=== PATIENT | female | born 1955 | race Caucasian/White ===

== ENCOUNTER 2018-04-30 03:34 | Inpatient (IN) | payer SELFPAY ==
[2018-04-30] MEDS ORDERED: diphenhydrAMINE 50 MG/ML VIAL ONE (04:35)
[2018-04-30] MEDS ORDERED: Heparin 10,000 UNITS/1 ML VIAL ONE ×2 (04:56→06:23)
[2018-04-30] MEDS ORDERED: Fentanyl 100 MCG/2 ML VIAL ONE (05:07)
--- NOTE | 2018-04-30 05:57 | PRG ---
DATE OF SERVICE: 04/30/2018 Ms. Porter is a 63-year-old female who awoke with a dense left hemiparesis in the late evening. She presented to the ER where a noncontrast head CT was performed , which revealed no evidence for hemorrhage. Subsequent to that, she had a CT angiogram performed, which reveals branch occlusion of the right distal aspect of the M1 segment of the middle cerebral artery. She was outside the window for tPA. The paving and surfacing labourer was activated and the plan is to move forward with conventional angiography with potential for mechanical thrombectomy. Despite the patient's deficit, she is awake and interactive. She is able to follow commands. She is unable to lift her left leg or left arm to antigravity for more than a fraction of a second. I discussed risks, benefits, and alternatives of the procedure. Job ID: [id number] MTDD
[2018-04-30] MEDS ORDERED: Phenylephrine HCL 10 MG/ML VIAL ONE (06:35)
[2018-04-30] MEDS ORDERED: Labetalol HCl 100 MG/20 ML VIAL SLOW IVP PRN (06:45)
[2018-04-30] MEDS ORDERED: Communication Order-Pharmacy FS ONE (06:45)
--- NOTE | 2018-04-30 07:48 | CT ---
CT BRAIN PERFUSION WITH CONTRAST AND 3D REFORMATTED IMAGING: CLINICAL HISTORY: Left-sided weakness. FINDINGS: There is abnormal reduction of blood flow within the right MCA territory, predominantly the anterior division with correlative increased mean transit time. There is no significant reduction of blood vo lume. IMPRESSION: Sizable penumbra is demonstrated within the right middle cerebral artery territory, predominantly the anterior division. Telephone call of findings placed to Dr. Hoyt, 0525 hours, 04/30/2018. CODE CR POS: [facility]
[2018-04-30] MEDS: Ketorolac Tromethamine 30 MG/ML VIAL IVP PRN ×2 (08:58→16:12)
[2018-04-30] MEDS ORDERED: Non-Formulary Item 1 EACH (Escitalopram Oxalate [Lexapro] 5 MG) PO SCH (09:00)
--- NOTE | 2018-04-30 09:42 | CON ---
DATE OF CONSULTATION: 04/30/2018 CONSULTING PHYSICIAN: Dr. Hoyt. REASON FOR CONSULTATION: Critical Care Management post stroke. HISTORY OF PRESENT ILLNESS: The patient is a 63-year-old female, who presented to the emergency room after falling at home and demonstrating severe left-sided weakness. She was found to have a right MCA distribution stroke. She underwent emergency retrieval procedure by Dr. Hoyt and is now in the CCU. She is now on mechanical ventilation. She has an arterial line and blood pressure is being monitored closely. PAST MEDICAL HISTORY: 1. Hypothyroidism. 2. Hypertension. PAST SURGICAL HISTORY: 1. section. 2. Hysterectomy. 3. Right foot surgery. 4. Back surgery. SOCIAL HISTORY: She is a half pack per day smoker. Does not consume alcohol. Lives at home with family. 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 ALLERGIES: MULTIPLE INCLUDES CEPHALEXIN, CODEINE, MEPERIDINE, SULFA. MEDICATIONS: Prior to admission: 1. Lexapro 5 mg daily. 2. Inderal LA 80 mg once daily. 3. Levothyroxine 125 mcg daily. FAMILY MEDICAL HISTORY: Unremarkable for stroke. REVIEW OF SYSTEMS: Twelve-point review of system otherwise negative. PHYSICAL EXAMINATION: VITAL SIGNS: Pulse 61, blood pressure 135/55, O2 saturation 100%, respiratory rate 18. GENERAL: The patient is awake, able to follow commands on the right side. HEENT: Pupils reactive. Eyes are not deviated. Tongue midline. Oropharynx clear. NECK: No adenopathy or JVD. LUNGS: Clear to auscultation. CARDIAC: S1-S2 regular with audible murmur. ABDOMEN: Soft, nontender, nondistended. EXTREMITIES: No clubbing, cyanosis, or edema. NEUROLOGIC: She has dense left-sided hemiparesis. She has left-sided facial droop. Her motor function on the right is normal. LABORATORY DATA: 1. I do not see any labs that were drawn at our facility in [place]. Her white blood cell count 8.3, hematocrit 39.5, and platelet count 187. INR 0.8, PTT 24.3. Sodium 130, potassium 3.6, chloride 107, CO2 of 22, BUN 14, creatinine 0.7 glucose 105. TSH was 0.33. ASSESSMENT: 1. 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 2. Hypertension. 3. Hypothyroidism. PLAN: Her thyroid medication will be restarted. Her Lexapro will be restarted. I will hold off on Inderal at this time since she is on tight blood pressure control with nicardipine, if needed. The above encompassed 70 minutes time, of that greater than 50% was spent with the patient. Job ID: [id number] MTDD
[2018-04-30] MEDS: Sodium Chloride 0.9% 1,000 ML IV SCH (10:00)
--- NOTE | 2018-04-30 10:10 | CON ---
DATE OF CONSULTATION: 04/30/2018 IMPRESSION: 1. Probable right middle cerebral artery infarct, status post thrombectomy. 2. History of cardiac dysrhythmia. 3. Hypothyroidism. PLAN: 1. MRI of the brain. 2. Echocardiogram. 3. Start aspirin and a statin. HISTORY OF PRESENT ILLNESS: Ms. Porter is a 63-year-old white female, who was brought in with acute onset of dysarthria and left-sided weakness. Initial CT scan of the brain did not show any evidence of hemorrhage. She was taken to the greens laborer by Dr. Hoyt. She underwent thrombectomy. Reportedly, there was good latter-day of blood flow. She was transferred to the ICU. She has been in the sinus rhythm. She has not shown any sign of improvement. She had no history of TIA symptoms prior to this. PAST MEDICAL HISTORY: As listed above. ALLERGIES: IODINE. SOCIAL HISTORY: Unremarkable. FAMILY HISTORY: Noncontributory. REVIEW OF SYSTEMS: Ten-system review of systems is otherwise negative. PHYSICAL EXAMINATION: VITAL SIGNS: Pulse 65, respirations 13, and blood pressure 123/40. HEENT: Pupils are equal. Conjunctivae are clear. Oropharynx clear. NECK: No lymphadenopathy. EXTREMITIES: No cyanosis or edema. NEUROLOGIC: She is alert and cooperative. Her speech is moderately dysarthric. There is a left facial droop. There is a dense left hemiparesis. She also has dense sensory deficit on the left side. Plantar response is upgoing on the left, downgoing on the right. Gait is not testable. No abnormal movements were seen. LABORATORY DATA: Laboratory studies were reviewed and appear unremarkable. SUMMARY: Unfortunate woman, who suffered a fairly large infarct probably involving the entire MCA territory. Despite thrombectomy, I do not see any sign of improvement at this point. We will review her MRI of the brain and follow in her care. Job ID: [id number]
[2018-04-30] MEDS: Escitalopram Oxalate 10 mg Tablet PO SCH (10:30)
[2018-04-30] MEDS: Aspirin 325 mg Enteric Coated Tablet PO SCH (10:30)
[2018-04-30] MEDS: Levothyroxine Sodium 125 MCG TAB PO SCH (10:30)
[2018-04-30] MEDS: Famotidine/PF 20 mg/2ml Vial SLOW IVP SCH ×2 (10:31→21:52)
[2018-04-30] MEDS: Enoxaparin Sodium 30 MG/0.3 ML SYRINGE SC SCH (10:31)
[2018-04-30] MEDS ORDERED: Iopamidol 370 76% 100 ML VIAL ONE (11:25)
--- NOTE | 2018-04-30 12:02 | CON ---
DATE OF CONSULTATION: HISTORY OF PRESENT ILLNESS: The patient is able to speak this morning. She says she is doing okay. She does have some discomfort in her neck and upper back area, which is likely positional. Denies any other pain. Denies abdominal pain. Ms. Porter presented initially to the [facility] with a wake-up stroke. She had left hemiplegia. She was transported to [place], but given contrast allergy was premedicated and subsequently transferred to this facility. CT scan showed no bleed. CTA revealed evidence of a large vessel occlusion. Dr. Hoyt was notified, came in, performed manual extraction of the thrombus and subsequently, the patient has been admitted to the ICU. PAST MEDICAL HISTORY: Notable for hypothyroidism and apparently some history of blood pressure as well. PAST SURGICAL HISTORY: , ankle surgery, and back surgery. FAMILY HISTORY: Mother had a CVA. SOCIAL HISTORY: The patient is . She smokes half a pack a day. No alcohol. HOME MEDICATIONS: Include; 1. Propranolol 80 mg daily. 2. Escitalopram 5 mg daily. 3. Levothyroxine 125 mcg daily. ALLERGIES: KEFLEX, CODEINE, IODINE, MEPERIDINE/DEMEROL, AND SULFA. CURRENT MEDICATIONS: 1. Tylenol. 2. Aspirin. 3. Atorvastatin. 4. Enoxaparin. 5. Escitalopram. 6. Famotidine. 7. Ketorolac. 8. Labetalol. 9. Levothyroxine. 10. Cardene drip. PHYSICAL EXAMINATION: VITAL SIGNS: Afebrile, pulse 67, respirations 11, O2 saturation 98% on room air, and BP 124/52. GENERAL APPEARANCE: Age-appropriate female lying supine in the bed with head turn to the right. She is a bit encephalopathic, but will awake and although she is a bit slow, will make good eye contact and respond. HEENT: PERRL. No OP lesions. Upper dentures in place. NECK: Supple and symmetric. HEART: Regular rate and rhythm without murmurs, gallops, or rubs. LUNGS: Clear to auscultation bilaterally with good chest wall expansion and air exchange. ABDOMEN: Soft, nontender, and nondistended. Positive bowel sounds. No masses. No organomegaly. EXTREMITIES: No cyanosis, clubbing, or edema. NEUROLOGIC: Again, the patient appears to be very mildly encephalopathic. She; however, able to answer questions and appears cognitively intact. She has a fairly dense left hemiplegia and some left facial droop. She did appear to be able to swallow pudding with speech therapy while we were in the room evaluating the patient as well. LABORATORY DATA: White count 8.3, hemoglobin 12.5, and platelets 187. INR is 0.8 and PTT 24.3. Chemistries are normal. TSH 0.3316. IMPRESSION AND PLAN: 1. Ischemic right middle cerebral artery cerebrovascular accident, status post manual thrombectomy. The patient has a persistent dense left hemiplegia. Fortunately, she is largely cognitively intact, able to swallow and communicate. We will continue supportive care until ready to transfer to the neuro unit, where we will continue aspirin, statins, and therapy. I had a long discussion with the patient's family. 2. Hypothyroidism. Continue with her usual home medications. Job ID: [id number]
--- NOTE | 2018-04-30 12:30 | CT ---
PRELIMINARY REPORT/[facility]/EMERGENTY AFTER-HOURS PROCEDURE CT Angiography Head Without And With Contrast EXAM DATE/TIME: 04/30/2018 3:51 AM CLINICAL HISTORY: 63 years old, female; Signs and symptoms; Weakness; Patient HX: 63 yr old f with new onset of left si ded upper and lower extremity weakness, left sided sensory changes, and slurred speech < 3 hrs from l ast normal. Some symptoms improvement. TECHNIQUE: Imaging protocol: Axial computed tomographic angiography images of the head without and with intraven ous contrast using CT angiography protocol. Coronal and sagittal reformatted images were created and reviewed. 3D rendering: MIP reconstructed im ages were created and reviewed. COMPARISON: No relevant prior studies available. FINDINGS: Right internal carotid artery: Unremarkable. Intracranial segment is patent with no significant steno sis. No aneurysm. Right anterior cerebral artery: Unremarkable. No occlusion or significant stenosis. No aneurysm. Right middle cerebral artery: There is an occlusive clot in the distal M1 segment of the right middle cerebral artery. Reconstitution of M2 branches. Associated early cytotoxic edema in the distribution of the right MCA. Right posterior cerebral artery: Unremarkable. No occlusion or significant stenosis. No aneurysm. Right vertebral artery: Unremarkable. No occlusion or significant stenosis. No aneurysm. Left internal carotid artery: Unremarkable. Intracranial segment is patent with no significant stenos is. No aneurysm. Left anterior cerebral artery: Unremarkable. No occlusion or significant stenosis. No aneurysm. Left middle cerebral artery: Unremarkable. No occlusion or significant stenosis. No aneurysm. Left posterior cerebral artery: Unremarkable. No occlusion or significant stenosis. No aneurysm. Left vertebral artery: Unremarkable. No occlusion or significant stenosis. No aneurysm. Basilar artery: Unremarkable. No occlusion or significant stenosis. No aneurysm. HEAD: Brain: Unremarkable. No hemorrhage. No significant white matter disease. No edema. Ventricles: Normal. No ventriculomegaly. Bones/joints: Unremarkable. No acute fracture. Sinuses: Visualized sinuses are normal. No fluid levels. Mastoid air cells: Visualized mastoids are normal. No mastoid effusion. Soft tissues: Unremarkable. IMPRESSION: There is an occlusive clot in the distal M1 segment of the right middle cerebral artery. Reconstituti on of M2 branches. Associated early cytotoxic edema in the distribution of the right MCA. CT Angiography Neck With Contrast EXAM DATE/TIME: 04/30/2018 3:51 AM CLINICAL HISTORY: 63 years old, female; Signs and symptoms; Weakness; Patient HX: 63 yr old f with new onset of left si ded upper and lower extremity weakness, left sided sensory changes, and slurred speech < 3 hrs from l ast normal. Some symptoms improvement. TECHNIQUE: Imaging protocol: Axial computed tomographic angiography images of the neck with intravenous contrast using CT angiography protocol. Coronal and sagittal reformatted images were created and reviewed. 3D rendering: MIP reconstructed images were created and reviewed. COMPARISON: No relevant prior studies available. FINDINGS: VASCULATURE: Right common carotid artery: Normal. No significant stenosis. No dissection or occlusion. Right internal carotid artery: Atherosclerotic calcification of the right carotid bulb and proximal r ight internal carotid artery without luminal narrowing. No thrombosis or occlusion. Right external carotid artery: Normal. No occlusion or significant stenosis. Right vertebral artery: Normal. No significant stenosis. No dissection or occlusion. Left common carotid artery: Normal. No significant stenosis. No dissection or occlusion. Left internal carotid artery: Normal. Extracranial segment is patent with no significant stenosis. No dissection or occlusion. Left external carotid artery: Normal. No occlusion or significant stenosis. Left vertebral artery: Normal. No significant stenosis. No dissection or occlusion. NECK: Bones/joints: No acute fracture. Soft tissues: Normal. No significant soft tissue swelling. Esophagus: Small amount of fluid in the proximal esophagus suggest gastroesophageal reflux. IMPRESSION: 1. No acute vascular findings. 2. Small amount of fluid in the proximal esophagus suggest gastroesophageal reflux. COMMENT: Reference per NASCET criteria for degree of stenosis: Mild: less than 50% stenosis. Moderate: 50-69% stenosis. Severe: 70-94% stenosis. Near occlusion: 95-99% stenosis. Findings discussed with LANDON SIDDIQUI MD at time of interpretation. Thank you for allowing us to participate in the care of your patient. Dictated and Authenticated by: Jerzy Pedroza MD 04/30/2018 4:29 AM Central Time ([place] & [place]) FINAL REPORT CT ANGIOGRAM OF THE NECK CT ANGIOGRAM OF THE HEAD: HISTORY: Stroke-like symptoms. COMPARISON: None. TECHNIQUE: CT angiogram of the head and neck are performed in the axial plane. Three-dimensional reformatted im ages are submitted for interpretation. FINDINGS: This report is in agreement with the preliminary report by [facility]. No significant stenosis in either ce rvical carotid artery based upon NASCET criteria. There is occlusion due to thrombus involving the d istal M1 segment, likely extending into the anterior division of the right middle cerebral artery. POS: [facility]
[2018-04-30] MEDS ORDERED: ISOVUE-370 76%-LOCM 1 ML ONE (13:53)
--- NOTE | 2018-04-30 14:07 | PDOC.EVN ---
Event Note - Event Note Event Note: Confirmed the patient remains full code with her daughter as her surrogate decision maker.
--- NOTE | 2018-04-30 17:34 | CT ---
CT BRAIN 04/30/18 PROVIDED CLINICAL HISTORY: Stroke. FINDINGS: Correlation is made with CT brain performed 04/30/18, 1:39 a.m. There is interval development of loss of broderick-white differentiation involving the right frontal regio n in the expected distribution of the right anterior cerebral artery. Chronic microvascular ischemic changes are redemonstrated. There is no evidence for intracranial hemorrhage. The extracranial soft t issue and osseous structures demonstrate an unremarkable CT appearance. IMPRESSION: Interval development of loss of broderick-white differentiation involving the right anterior cerebral tristian ry territory compatible with infarction. No evidence for intracranial hemorrhage. POS: [facility]
[2018-04-30] MEDS ORDERED: Ondansetron ODT 4 MG TAB PO PRN (19:57)
[2018-04-30] MEDS: Atorvastatin Calcium 40 MG TAB PO SCH (21:53)
[2018-04-30] MEDS: Ondansetron PF 4 MG/2 ML Vial IVP PRN (22:37)
[2018-05-01] MEDS: Sodium Chloride 0.9% 1,000 ML IV SCH (00:24)
[2018-05-01] MEDS: Ketorolac Tromethamine 30 MG/ML VIAL IVP PRN (06:22)
[2018-05-01 06:24] LABS: Anion Gap 7 mmol/L (10-20); BUN (Urea Nitrogen) 12 mg/dL (9.8-20.1); Calc. Creatinine Clearance 0 mL/min (70-130); Calcium 8.4 mg/dL (7.8-10.44); Carbon Dioxide 22 mmol/L (23-31); Cardiac Risk 5.8 (Less than 4.5); Chloride 114 mmol/L (98-107); Cholesterol 220 mg/dl (< 200 Desired); Estimated GFR-MDRD 89; Glucose 100 mg/dL (80-115); HDL Cholesterol 38 mg/dL (>60 Neg Risk); LDL Cholesterol, Calculated 146 mg/dL; Potassium 3.6 mmol/L (3.5-5.1); Sodium 139 mmol/L (136-145); Triglycerides 182 mg/dL (Less than 150)
--- NOTE | 2018-05-01 09:30 | PRG ---
DATE OF SERVICE: SUBJECTIVE: The patient is doing fairly well. She is able to eat and speak. She is still flaccid on the left side and has not regained any strength or feeling there. OBJECTIVE: VITAL SIGNS: Temperature is 98.5, blood pressure 134/59. HEENT: Unremarkable, except for left facial droop. NECK: No JVD. CHEST: Clear to auscultation. CARDIAC: S1-S2 regular. ABDOMEN: Soft. EXTREMITIES: No edema. NEUROLOGIC: She has left-sided paralysis, no sensation on this side. Right side is normal. LABORATORY DATA: Sodium 139, potassium 3.6, chloride 114 CO2 of 22, BUN 12, creatinine 0.6, glucose 100. ASSESSMENT: 1. Status post right middle cerebral artery distribution stroke. 2. Left-sided hemiparesis. PLAN: She can be transferred out to the stroke floor once her arterial sheath has been pulled out. She needs to start stroke rehab. No further Pulmonary recommendations. We will sign off. Job ID: [id number]
--- NOTE | 2018-05-01 09:32 | CCL ---
DATE: 04/30/18 SURGEON: Eliot Hoyt M.D. FOOT MITER OPERATOR: None. INDICATION: Thrombus formation right MCA. PROCEDURE: Mechanical thrombectomy. ANESTHESIA: General. TECHNIQUE: The patient is brought to the angiogram suite and placed under general anesthesia. Both groins were p repped and draped in the usual sterile fashion. 1% lidocaine was used to inject the right groin. A 5 Turkish micropuncture set was used to gain access to the right common femoral artery. Using a Seldinge r technique, the needle was removed and an 8 Turkish sheath was placed. An 8 Turkish concentric guide c atheter was passed over a long length of Hawley catheter which was passed over a Bentzen guide wir e. The right internal carotid artery was selectively catheterized. An AP and lateral angiogram was th en performed which confirmed occlusion of the mid aspect of the middle cerebral artery on the right s whit of the M1 segment. Retrieval device was passed for a total of three times. On the third pass ther e was quaker of flow into the middle cerebral artery territory. There was a superior branch of t he middle cerebral artery which did not appear to fill normally. All catheters were then removed. The sheath was sewn into place for utilization as a art line. The procedure came to an end without compl ication. IMPRESSION: The patient underwent successful diagnostic angiography with successful mechanical thrombectomy with quaker of flow into the right middle cerebral artery territory.
[2018-05-01] MEDS: Aspirin 325 mg Enteric Coated Tablet PO SCH (10:11)
[2018-05-01] MEDS: Escitalopram Oxalate 10 mg Tablet PO SCH (10:11)
[2018-05-01] MEDS: Levothyroxine Sodium 125 MCG TAB PO SCH (10:11)
[2018-05-01] MEDS: Enoxaparin Sodium 30 MG/0.3 ML SYRINGE SC SCH (10:12)
[2018-05-01] MEDS: Famotidine/PF 20 mg/2ml Vial SLOW IVP SCH (10:12)
--- NOTE | 2018-05-01 10:51 | PDOC.PN ---
- Subjective Encounter Start Date: 05/01/18 (f/u stroke) Encounter Start Time: 10:50 Subjective: Pt tearful, states she just wants to feel normal again. c/o headache -: denies any other pain - Objective Vital Signs & Weight: Vital Signs (12 hours) Temp Pulse Ox 05/01/18 08:00 98.5 F 97 05/01/18 00:00 98.4 F Weight Weight 189 lb 13.088 oz Most Recent Monitor Data Heart Rate from ECG 65 NIBP 120/67 NIBP BP-Mean 84 Respiration from ECG 17 SpO2 99 I&O: 04/30/18 05/01/18 05/02/18 06:59 06:59 06:59 Intake Total 989 Output Total 1890 185 Balance -901 -185 Result Diagrams: 05/01/18 05:50 EKG Reviewed by me: Yes (tele - sinus 60's with pac's and pvc's) Phys Exam - Physical Examination Constitutional: NAD left facial droop eomi, pupils equal and round Respiratory: no wheezing, no rales, no rhonchi Cardiovascular: RRR, no significant murmur Gastrointestinal: soft, non-tender, no distention, positive bowel sounds Musculoskeletal: no edema no movement of left side. Full tiller man/hand strength. Pt had sheath removed from right groin this AM - unable to test strength Deviation from normal: tearful regarding situation Skin: no rash Dx/Plan (1) Ischemic stroke Code(s): I63.9 - CEREBRAL INFARCTION, UNSPECIFIED Status: Acute (2) Tachycardia Code(s): R00.0 - TACHYCARDIA, UNSPECIFIED Status: Acute (3) Hypothyroid Code(s): E03.9 - HYPOTHYROIDISM, UNSPECIFIED Status: Acute (4) Mood disorder Code(s): F39 - UNSPECIFIED MOOD [AFFECTIVE] DISORDER Status: Acute (5) Left hemiparesis Code(s): G81.94 - HEMIPLEGIA, UNSPECIFIED AFFECTING LEFT NONDOMINANT SIDE Status: Acute - Plan * pt is s/p thombectomy by NS * Appreciate NS and Neurology consultants - on aspirin, statin, plan for MRI * * Resume home propranolol -change to lower dose of short acting propranolol with hold parameters. The goal is to continue to rate control as pt does in the outpatient setting and avoid hypotension * * pt/ot/speech/stroke rehab * * continue home med for mood and thyroid replacement * * monitor on telemetry * * dvt prophy - lovenox * gi prophy - not indicated, pt taking PO and pepcid d/c * code status full * * reviewed the plan of care with patient, including mood changes that can occur with stroke = encouraged her to hold on to hope with regards to return of strength and function. * * Addendum - was going to start with 40 mg bid with propranolol - but reviewed order options and 10 mg bid is available. Will start with this dose and titrate up based on heart rate.
[2018-05-01] MEDS ORDERED: Oxymetazoline HCl 0.05% ( 15 ML ) NASAL PRN (12:20)
[2018-05-01] MEDS: Acetaminophen 325 MG TAB PO PRN ×2 (13:39→20:24)
[2018-05-01] MEDS ORDERED: Succinylcholine Chloride 20 MG/ML 10 ml SYRINGE FS ONE (14:43)
[2018-05-01] MEDS ORDERED: ePHEDrine 50 MG/ML VIAL ONE (14:43)
[2018-05-01] MEDS ORDERED: Lidocaine 1% PF 5 ML VIAL ONE (14:43)
[2018-05-01] MEDS ORDERED: Rocuronium Bromide 10 MG/ML (10ML VIAL) ONE (14:43)
[2018-05-01] MEDS ORDERED: Glycopyrrolate 0.2 MG/ML 5 ML SYRINGE ONE (14:43)
[2018-05-01] MEDS ORDERED: PHENYLEPHRINE-NS 100 MCG/ML 10 ML SYRINGE ONE (14:43)
[2018-05-01] MEDS ORDERED: PROPOFOL 200 MG/20 ML VIAL ONE (14:43)
[2018-05-01] MEDS: Famotidine 20 MG TAB PO SCH (20:23)
[2018-05-01] MEDS: Propranolol 10 MG TAB PO SCH (20:24)
[2018-05-01] MEDS: Atorvastatin Calcium 40 MG TAB PO SCH (20:24)
[2018-05-01] MEDS ORDERED: Propranolol 40 MG TAB PO SCH (21:00)
[2018-05-01] MEDS: traMADol HCl 50 MG TAB PO PRN (21:56)
[2018-05-02] MEDS: Ondansetron PF 4 MG/2 ML Vial IVP PRN (04:27)
[2018-05-02 06:31] LABS: Anion Gap 10 mmol/L (10-20); BUN (Urea Nitrogen) 9 mg/dL (9.8-20.1); Calc. Creatinine Clearance 120 mL/min (70-130); Calcium 8.7 mg/dL (7.8-10.44); Carbon Dioxide 20 mmol/L (23-31); Chloride 113 mmol/L (98-107); Estimated GFR-MDRD 89; Glucose 100 mg/dL (80-115); Potassium 3.6 mmol/L (3.5-5.1); Sodium 139 mmol/L (136-145)
--- NOTE | 2018-05-02 07:56 | PDOC.PN ---
- Subjective Encounter Start Date: 05/02/18 Encounter Start Time: 10:40 Subjective: Patient with persistent left hemiplegia. Some cough and wheezing -: which she gets on and off from smoking. - Objective MAR Reviewed: Yes Vital Signs & Weight: Vital Signs (12 hours) Temp Pulse Resp BP Pulse Ox 05/02/18 07:52 97.9 F 68 16 132/84 97 05/02/18 07:44 96 05/02/18 04:00 97.4 F L 61 16 123/66 96 05/02/18 00:00 97.4 F L 70 16 136/71 96 05/01/18 20:24 96 05/01/18 20:00 98.9 F 76 18 142/63 H 96 Weight Weight 189 lb 13.088 oz Most Recent Monitor Data Heart Rate from ECG 65 NIBP 120/67 NIBP BP-Mean 84 Respiration from ECG 17 SpO2 99 I&O: 05/01/18 05/02/18 05/03/18 06:59 06:59 06:59 Intake Total 989 480 Output Total 1890 835 Balance -901 -355 Result Diagrams: 05/02/18 05:36 Phys Exam - Physical Examination Constitutional: NAD HEENT: moist MMs Respiratory: no rales, no rhonchi, wheezing present no increased WOB Cardiovascular: RRR, no significant murmur Gastrointestinal: soft, positive bowel sounds left arm and leg paralyzed Psychiatric: normal affect, A&O x 3 Dx/Plan (1) Ischemic stroke Code(s): I63.9 - CEREBRAL INFARCTION, UNSPECIFIED Status: Acute Comment: S/ P Thrombectomy by Dr. Hoyt (2) Left hemiparesis Code(s): G81.94 - HEMIPLEGIA, UNSPECIFIED AFFECTING LEFT NONDOMINANT SIDE Status: Acute (3) Tachycardia Code(s): R00.0 - TACHYCARDIA, UNSPECIFIED Status: Resolved Comment: controlled with low dose Propranolol (4) Hypothyroid Code(s): E03.9 - HYPOTHYROIDISM, UNSPECIFIED Status: Acute (5) Mood disorder Code(s): F39 - UNSPECIFIED MOOD [AFFECTIVE] DISORDER Status: Acute (6) COPD (chronic obstructive pulmonary disease) Status: Acute Comment: will add nebs prn - Plan cont current plan of care, PT/OT, DVT proph w/lovenox, DVT proph w/SCDs * . - Discharge Day Encounter end time: 10:50
[2018-05-02] MEDS: Escitalopram Oxalate 10 mg Tablet PO SCH (09:26)
[2018-05-02] MEDS: Levothyroxine Sodium 125 MCG TAB PO SCH (09:27)
[2018-05-02] MEDS: Famotidine 20 MG TAB PO SCH ×2 (09:27→21:10)
[2018-05-02] MEDS: Aspirin 325 mg Enteric Coated Tablet PO SCH (09:28)
[2018-05-02] MEDS: Propranolol 10 MG TAB PO SCH ×2 (09:28→21:10)
[2018-05-02] MEDS: Acetaminophen 325 MG TAB PO PRN ×2 (09:30→21:10)
[2018-05-02] MEDS: Enoxaparin Sodium 30 MG/0.3 ML SYRINGE SC SCH (09:30)
[2018-05-02] MEDS ORDERED: Metoclopramide HCl 10 MG/2 ML VIAL IVP SCH (10:30)
[2018-05-02] MEDS ORDERED: diphenhydrAMINE 50 MG/ML VIAL IVP SCH (10:30)
[2018-05-02] MEDS ORDERED: Diazepam 5 MG TAB PO SCH (15:30)
--- NOTE | 2018-05-02 17:03 | MRI ---
MRI BRAIN WITHOUT CONTRAST: INDICATIONS: Ischemic stroke with left hemiparesis. That showed evidence of infarct involving the right STU distr ibution. CORRELATION: CT head performed on 04/30/2018. TECHNIQUE: Multiplanar, multisequential imaging of brain obtained. FINDINGS: There is diffuse cytotoxic edema involving the right frontal lobe. There is restricted diffusion see n involving the superomedial right frontal lobe, in the territory of the right anterior cerebral tristian ry; however, there are also numerous patchy areas of restricted diffusion in the right frontal perisy lvian region, in the right MCA territory. there is evidence of infarct involving the posterior insul ar cortex, along with perisylvian cortex, on the right. The FLAIR sequence shows cytotoxic edema inv olving all these areas of infarct. The ventricles have normal size and position. There is moderately severe chronic ischemic white mary ann er change. No evidence of hemorrhage. Review of the vessels shows that the intracranial internal carotid arteries are patent. The proximal right middle cerebral arteries apparent patent and show flow voids. A left anterior cerebral artery shows flow voids. A proximal right anterior cerebral artery is poorly identified. Basilar artery and posterior cerebral artery show flow voids proximally. IMPRESSION: Evidence of extensive acute/subacute infarction involving the right cerebral hemisphere. This primar jaime involves the right frontal lobe, with right perisylvian cortex involvement. The distribution inc ludes the right anterior cerebral and the right middle cerebral arteries. POS: [facility]
[2018-05-02] MEDS: Atorvastatin Calcium 40 MG TAB PO SCH (21:10)
[2018-05-03 05:48] LABS: #Basophils 0.1 thou/uL (0.0-0.2); #Eosinphils 0.3 thou/uL (0.0-0.7); #Lymphocytes 2.2 thou/uL (1.20-3.40); #Monocytes 0.5 thou/uL (0.11-0.59); %Basophils 1.2 % (0.0-1.0); %Lymphocytes 31.3 % (21.0-51.0); %Monocytes 7.6 % (0.0-10.0); %Neutrophils 56.1 % (42.0-75.0); Hemoglobin 12.7 g/dL (12.0-16.0); Mean Corpuscular Hemoglobin 36.2 pg (27.0-31.0); Mean Platelet Volume 7.5 fL (7.4-10.4); Platelet Count 182 thou/uL (130-400); RBC Distribution Width 15.1 % (11.5-14.5); White Blood Cell (WBC) Count 7.2 thou/uL (4.8-10.8)
[2018-05-03 06:06] LABS: Anion Gap 9 mmol/L (10-20); BUN (Urea Nitrogen) 8 mg/dL (9.8-20.1); Calc. Creatinine Clearance 115 mL/min (70-130); Calcium 8.9 mg/dL (7.8-10.44); Carbon Dioxide 23 mmol/L (23-31); Chloride 112 mmol/L (98-107); Estimated GFR-MDRD 85; Glucose 95 mg/dL (80-115); Potassium 4.3 mmol/L (3.5-5.1); Sodium 140 mmol/L (136-145)
[2018-05-03] MEDS: Acetaminophen 325 MG TAB PO PRN ×2 (07:07→21:03)
[2018-05-03] MEDS: Enoxaparin Sodium 30 MG/0.3 ML SYRINGE SC SCH (08:50)
[2018-05-03] MEDS: Aspirin 325 mg Enteric Coated Tablet PO SCH (08:51)
[2018-05-03] MEDS: Propranolol 10 MG TAB PO SCH ×2 (08:51→21:03)
[2018-05-03] MEDS: Levothyroxine Sodium 125 MCG TAB PO SCH (08:51)
[2018-05-03] MEDS: Escitalopram Oxalate 10 mg Tablet PO SCH (08:51)
[2018-05-03] MEDS: Famotidine 20 MG TAB PO SCH ×2 (08:51→21:03)
--- NOTE | 2018-05-03 08:54 | PDOC.PN ---
- Subjective Encounter Start Date: 05/03/18 Encounter Start Time: 10:50 Subjective: Patient reports CRISOSTOMO resolved with Reglan and Benadryl yesterday. No other -: complaints. - Objective MAR Reviewed: Yes Vital Signs & Weight: Vital Signs (12 hours) Temp Pulse Resp BP Pulse Ox 05/03/18 08:00 97.6 F 71 18 114/76 94 L 05/03/18 07:24 96 05/03/18 04:00 98.2 F 69 16 127/74 96 05/03/18 00:00 98 F 69 16 101/55 L 94 L Weight Weight 189 lb 13.088 oz Most Recent Monitor Data Heart Rate from ECG 65 NIBP 120/67 NIBP BP-Mean 84 Respiration from ECG 17 SpO2 99 I&O: 05/02/18 05/03/18 05/04/18 06:59 06:59 06:59 Intake Total 480 960 Output Total 835 3550 Balance -355 -6930 Result Diagrams: 05/03/18 05:13 05/03/18 05:13 Phys Exam - Physical Examination Constitutional: NAD HEENT: moist MMs Respiratory: no wheezing, no rales, no rhonchi Cardiovascular: RRR Gastrointestinal: soft, positive bowel sounds Musculoskeletal: no edema complete left upper and lower extremity hemiplegia Psychiatric: normal affect, A&O x 3 Dx/Plan (1) Ischemic stroke Code(s): I63.9 - CEREBRAL INFARCTION, UNSPECIFIED Status: Acute Comment: S/ P Thrombectomy by Dr. Hoyt, MRI with extensive infarct of right cerebral hemisphere, zackery right frontal lobe (2) Left hemiparesis Code(s): G81.94 - HEMIPLEGIA, UNSPECIFIED AFFECTING LEFT NONDOMINANT SIDE Status: Acute (3) Tachycardia Code(s): R00.0 - TACHYCARDIA, UNSPECIFIED Status: Resolved Comment: controlled with low dose Propranolol (4) Hypothyroid Code(s): E03.9 - HYPOTHYROIDISM, UNSPECIFIED Status: Acute (5) Mood disorder Code(s): F39 - UNSPECIFIED MOOD [AFFECTIVE] DISORDER Status: Acute (6) COPD (chronic obstructive pulmonary disease) Status: Acute Comment: will add nebs prn (7) Cardiomyopathy Code(s): I42.9 - CARDIOMYOPATHY, UNSPECIFIED Status: Chronic Comment: EF 45- 50%, grade 1/3 diastolic dysfunction - Plan cont current plan of care, PT/OT, DVT proph w/lovenox, DVT proph w/SCDs will need rehab * . - Discharge Day Encounter end time: 11:00
[2018-05-03] MEDS: Atorvastatin Calcium 40 MG TAB PO SCH (21:03)
[2018-05-03] MEDS ORDERED: diphenhydrAMINE 25 MG CAP PO SCH (23:30)
[2018-05-03] MEDS ORDERED: Metoclopramide HCl 10 MG TAB PO SCH (23:30)
--- NOTE | 2018-05-04 08:59 | PDOC.PN ---
- Subjective Encounter Start Date: 05/04/18 Encounter Start Time: 10:10 Subjective: Headache returned last night, not better with repeat Metoclopramide -: and Benadryl. Also having delirium episodes each night wakes up after -: 30 min thinking at home and combative. Slept ok after that this AM. Tearful on and off. - Objective MAR Reviewed: Yes Vital Signs & Weight: Vital Signs (12 hours) Temp Pulse Resp BP Pulse Ox 05/04/18 07:54 98.4 F 74 20 126/78 94 L 05/04/18 07:12 93 L 05/04/18 04:00 98.3 F 75 16 109/63 93 L 05/04/18 00:00 98.1 F 75 16 109/57 L 92 L Weight Weight 189 lb 4.8 oz Most Recent Monitor Data Heart Rate from ECG 65 NIBP 120/67 NIBP BP-Mean 84 Respiration from ECG 17 SpO2 99 I&O: 05/03/18 05/04/18 05/05/18 06:59 06:59 06:59 Intake Total 960 375 Output Total 3550 825 Balance -2590 -450 Result Diagrams: 05/03/18 05:13 05/03/18 05:13 Phys Exam - Physical Examination Constitutional: NAD HEENT: moist MMs Respiratory: no wheezing, no rales, no rhonchi clearing some congestion in throat Cardiovascular: RRR, no significant murmur Gastrointestinal: soft, positive bowel sounds Musculoskeletal: no edema dense left hemiparesis of upper and lower extremity Psychiatric: normal affect, A&O x 3 Dx/Plan (1) Ischemic stroke Code(s): I63.9 - CEREBRAL INFARCTION, UNSPECIFIED Status: Acute Comment: S/ P Thrombectomy by Dr. Hoyt, MRI with extensive infarct of right cerebral hemisphere, zackery right frontal lobe (2) Left hemiparesis Code(s): G81.94 - HEMIPLEGIA, UNSPECIFIED AFFECTING LEFT NONDOMINANT SIDE Status: Acute (3) Tachycardia Code(s): R00.0 - TACHYCARDIA, UNSPECIFIED Status: Resolved Comment: controlled with low dose Propranolol (4) Hypothyroid Code(s): E03.9 - HYPOTHYROIDISM, UNSPECIFIED Status: Acute (5) Mood disorder Code(s): F39 - UNSPECIFIED MOOD [AFFECTIVE] DISORDER Status: Acute (6) COPD (chronic obstructive pulmonary disease) Status: Acute Comment: will add nebs prn (7) Cardiomyopathy Code(s): I42.9 - CARDIOMYOPATHY, UNSPECIFIED Status: Chronic Comment: EF 45- 50%, grade 1/3 diastolic dysfunction (8) Depression Code(s): F32.9 - MAJOR DEPRESSIVE DISORDER, SINGLE EPISODE, UNSPECIFIED Status : Acute Comment: worse with stroke, will increase home Lexapro to 10mg each night. (9) Code(s): F05 - DELIRIUM DUE TO KNOWN PHYSIOLOGICAL CONDITION Status: Acute Comment: try some Seroquel before bed tonight - Plan cont current plan of care, PT/OT, DVT proph w/lovenox, DVT proph w/SCDs placement when able, difficult due to no funding * . - Discharge Encounter end time: 10:30
[2018-05-04] MEDS: Levothyroxine Sodium 125 MCG TAB PO SCH (10:24)
[2018-05-04] MEDS: Famotidine 20 MG TAB PO SCH ×2 (10:24→21:17)
[2018-05-04] MEDS: Acetaminophen 325 MG TAB PO PRN ×2 (10:24→18:26)
[2018-05-04] MEDS: Enoxaparin Sodium 30 MG/0.3 ML SYRINGE SC SCH (10:25)
[2018-05-04] MEDS: Propranolol 10 MG TAB PO SCH ×2 (10:25→21:17)
[2018-05-04] MEDS: Aspirin 325 mg Enteric Coated Tablet PO SCH (10:25)
[2018-05-04] MEDS ORDERED: Melatonin 3 MG TAB PO PRN (10:36)
[2018-05-04] MEDS ORDERED: Bisacodyl 5 MG TAB PO PRN (10:41)
[2018-05-04] MEDS ORDERED: Escitalopram Oxalate 10 mg Tablet PO SCH (21:00)
[2018-05-04] MEDS: Atorvastatin Calcium 40 MG TAB PO SCH (21:17)
[2018-05-04] MEDS: Escitalopram Oxalate 10 mg Tablet PO SCH (21:17)
[2018-05-04] MEDS: Docusate 100 MG CAP PO SCH (21:18)
[2018-05-05] MEDS: Levothyroxine Sodium 125 MCG TAB PO SCH (06:27)
--- NOTE | 2018-05-05 09:05 | PDOC.PN ---
- Subjective Encounter Start Date: 05/05/18 Encounter Start Time: 10:40 Subjective: Patient slept much better last night. No waking in the middle of the night -: with confusion. - Objective MAR Reviewed: Yes Vital Signs & Weight: Vital Signs (12 hours) Temp Pulse Resp BP Pulse Ox 05/05/18 07:48 98.1 F 74 17 129/70 92 L Weight Weight 189 lb 4.8 oz Most Recent Monitor Data Heart Rate from ECG 65 NIBP 120/67 NIBP BP-Mean 84 Respiration from ECG 17 SpO2 99 I&O: 05/04/18 05/05/18 05/06/18 06:59 06:59 06:59 Intake Total 375 1330 Output Total 825 1800 Balance -450 -470 Result Diagrams: 05/03/18 05:13 05/03/18 05:13 Phys Exam - Physical Examination Constitutional: NAD HEENT: moist MMs Respiratory: no wheezing, no rales, no rhonchi some throat/upper airway congestion, but improved Cardiovascular: RRR, no significant murmur Gastrointestinal: soft, positive bowel sounds Musculoskeletal: no edema dense left hemiparesis, mild improvement in muscle tone of LUE Psychiatric: normal affect, A&O x 3 Dx/Plan (1) Ischemic stroke Code(s): I63.9 - CEREBRAL INFARCTION, UNSPECIFIED Status: Acute Comment: S/ P Thrombectomy by Dr. Hoyt, MRI with extensive infarct of right cerebral hemisphere, zackery right frontal lobe (2) Left hemiparesis Code(s): G81.94 - HEMIPLEGIA, UNSPECIFIED AFFECTING LEFT NONDOMINANT SIDE Status: Acute (3) Tachycardia Code(s): R00.0 - TACHYCARDIA, UNSPECIFIED Status: Resolved Comment: controlled with low dose Propranolol (4) Hypothyroid Code(s): E03.9 - HYPOTHYROIDISM, UNSPECIFIED Status: Acute (5) Mood disorder Code(s): F39 - UNSPECIFIED MOOD [AFFECTIVE] DISORDER Status: Acute (6) COPD (chronic obstructive pulmonary disease) Status: Acute Comment: will add nebs prn (7) Cardiomyopathy Code(s): I42.9 - CARDIOMYOPATHY, UNSPECIFIED Status: Chronic Comment: EF 45- 50%, grade 1/3 diastolic dysfunction (8) Depression Code(s): F32.9 - MAJOR DEPRESSIVE DISORDER, SINGLE EPISODE, UNSPECIFIED Status : Acute Comment: worse with stroke, will increase home Lexapro to 10mg each night. (9) Code(s): F05 - DELIRIUM DUE TO KNOWN PHYSIOLOGICAL CONDITION Status: Acute Comment: try some Seroquel before bed tonight - Plan cont current plan of care, PT/OT, DVT proph w/lovenox, DVT proph w/SCDs placement, unlikely to be able to find a [facility] rehab bed per case -: management * . - Discharge Day Encounter end time: 10:50
[2018-05-05] MEDS: Docusate 100 MG CAP PO SCH ×2 (10:28→21:08)
[2018-05-05] MEDS: Famotidine 20 MG TAB PO SCH ×2 (10:28→21:07)
[2018-05-05] MEDS: Enoxaparin Sodium 30 MG/0.3 ML SYRINGE SC SCH (10:28)
[2018-05-05] MEDS: Aspirin 325 mg Enteric Coated Tablet PO SCH (10:28)
[2018-05-05] MEDS: Propranolol 10 MG TAB PO SCH ×2 (10:28→21:08)
[2018-05-05] MEDS: Acetaminophen 325 MG TAB PO PRN (16:40)
[2018-05-05] MEDS: Atorvastatin Calcium 40 MG TAB PO SCH (21:07)
[2018-05-05] MEDS: Escitalopram Oxalate 10 mg Tablet PO SCH (21:07)
[2018-05-05 23:03] LABS: Bilirubin Negative (Negative); Blood, Urine Large (Negative); Clarity CLOUDY (Clear); Glucose, Urine (Dipstick) Negative (Negative); Leukocyte Large (Negative); Nitrite Positive (Negative); Protein, Urine (Dipstick) Trace mg/dL (Neg-Trace); Specific Gravity, Urine 1.009 (1.002-1.036)
[2018-05-05 23:05] LABS: Bacteria/HPF 4+ HPF (None Seen); RBC/HPF GREATER THAN 50-TNTC HPF (0-3); Squamous Epithelial None Seen HPF (0-3)
[2018-05-05 23:11] LABS: Hyaline Casts/LPF 0-3 HYALINE CAST LPF (0-3 Hyaline)
[2018-05-06] MEDS ORDERED: Lactated Ringer's 1,000 ML IV SCH (02:30)
[2018-05-06 05:13] LABS: #Basophils 0.1 thou/uL (0.0-0.2); #Eosinphils 0.6 thou/uL (0.0-0.7); #Lymphocytes 2.7 thou/uL (1.20-3.40); #Monocytes 0.9 thou/uL (0.11-0.59); #Neutrophils 7.1 thou/uL (1.40-6.50); %Basophils 1.3 % (0.0-1.0); %Eosinophils 5.6 % (0.0-10.0); %Lymphocytes 23.2 % (21.0-51.0); %Neutrophils 61.9 % (42.0-75.0); Hemoglobin 13.2 g/dL (12.0-16.0); Mean Corpuscular HGB CONC 33.8 g/dL (32.0-36.0); Mean Corpuscular Hemoglobin 36.3 pg (27.0-31.0); Mean Platelet Volume 7.4 fL (7.4-10.4); Platelet Count 236 thou/uL (130-400); RBC Distribution Width 15.2 % (11.5-14.5); Red Blood Cell (RBC) Count 3.63 mill/uL (4.20-5.40); White Blood Cell (WBC) Count 11.4 thou/uL (4.8-10.8)
[2018-05-06] MEDS: Levothyroxine Sodium 125 MCG TAB PO SCH (06:24)
[2018-05-06] MEDS: Enoxaparin Sodium 30 MG/0.3 ML SYRINGE SC SCH (10:13)
[2018-05-06] MEDS: Docusate 100 MG CAP PO SCH ×2 (10:14→20:41)
[2018-05-06] MEDS: Famotidine 20 MG TAB PO SCH ×2 (10:15→20:41)
[2018-05-06] MEDS: Aspirin 325 mg Enteric Coated Tablet PO SCH (10:15)
[2018-05-06] MEDS: Propranolol 10 MG TAB PO SCH ×2 (10:17→20:42)
[2018-05-06] MEDS: Acetaminophen 325 MG TAB PO PRN (13:17)
--- NOTE | 2018-05-06 16:54 | PDOC.PN ---
- Subjective Encounter Start Date: 05/06/18 Encounter Start Time: 16:50 Subjective: No new problem -: left dense hemiparesis persists. - Objective Vital Signs & Weight: Vital Signs (12 hours) Temp Pulse Resp BP Pulse Ox 05/06/18 15:37 97.9 F 85 16 107/50 L 95 05/06/18 11:44 98.7 F 109 H 17 109/57 L 96 05/06/18 11:01 78 16 05/06/18 08:45 94 L 05/06/18 08:14 98.3 F 78 16 145/60 H 94 L Weight Weight 185 lb 11.2 oz Most Recent Monitor Data Heart Rate from ECG 65 NIBP 120/67 NIBP BP-Mean 84 Respiration from ECG 17 SpO2 99 I&O: 05/05/18 05/06/18 05/07/18 06:59 06:59 06:59 Intake Total 1330 240 Output Total 3300 1050 Balance -1970 -810 Result Diagrams: 05/06/18 04:53 05/03/18 05:13 Phys Exam - Physical Examination Constitutional: NAD HEENT: PERRLA, moist MMs Neck: supple Respiratory: no wheezing, no rales, no rhonchi fair air entry bilaterally Cardiovascular: RRR Gastrointestinal: soft, non-tender, no distention, positive bowel sounds Musculoskeletal: no edema Dense left hemiparesis. Psychiatric: A&O x 3 Dx/Plan (1) Acute right MCA stroke Code(s): I63.511 - CEREB INFRC D/T UNSP OCCLS OR STENOS OF RIGHT MID CEREB ART Status: Acute (2) Depression Code(s): F32.9 - MAJOR DEPRESSIVE DISORDER, SINGLE EPISODE, UNSPECIFIED Status : Acute Comment: worse with stroke, will increase home Lexapro to 10mg each night. (3) Hypothyroid Code(s): E03.9 - HYPOTHYROIDISM, UNSPECIFIED Status: Acute (4) Left hemiparesis Code(s): G81.94 - HEMIPLEGIA, UNSPECIFIED AFFECTING LEFT NONDOMINANT SIDE Status: Acute (5) Cardiomyopathy Code(s): I42.9 - CARDIOMYOPATHY, UNSPECIFIED Status: Chronic Comment: EF 45- 50%, grade 1/3 diastolic dysfunction (6) Tachycardia Code(s): R00.0 - TACHYCARDIA, UNSPECIFIED Status: Resolved Comment: controlled with low dose Propranolol - Plan Continue current management. -: Awaiting placement. * .
[2018-05-06] MEDS: Atorvastatin Calcium 40 MG TAB PO SCH (20:40)
[2018-05-06] MEDS: Escitalopram Oxalate 10 mg Tablet PO SCH (20:41)
[2018-05-07] MEDS: Levothyroxine Sodium 125 MCG TAB PO SCH (04:51)
[2018-05-07] MEDS: Enoxaparin Sodium 30 MG/0.3 ML SYRINGE SC SCH (08:36)
[2018-05-07] MEDS: Famotidine 20 MG TAB PO SCH ×2 (08:36→20:23)
[2018-05-07] MEDS: Propranolol 10 MG TAB PO SCH ×2 (08:36→20:22)
[2018-05-07] MEDS: Docusate 100 MG CAP PO SCH ×2 (08:37→20:24)
[2018-05-07] MEDS: Aspirin 325 mg Enteric Coated Tablet PO SCH (08:37)
--- NOTE | 2018-05-07 12:07 | PDOC.PN ---
- Subjective Encounter Start Date: 05/07/18 Encounter Start Time: 12:04 Subjective: No new problem -: Afebrile. No chest pain. - Objective Vital Signs & Weight: Vital Signs (12 hours) Temp Pulse Resp BP BP Pulse Ox 05/07/18 12:00 97.4 F L 75 18 112/52 L 95 05/07/18 08:00 98.6 F 92 18 123/65 96 05/07/18 04:00 97.3 F L 83 16 141/74 H 96 Weight Weight 185 lb 11.2 oz Most Recent Monitor Data Heart Rate from ECG 65 NIBP 120/67 NIBP BP-Mean 84 Respiration from ECG 17 SpO2 99 I&O: 05/06/18 05/07/18 05/08/18 06:59 06:59 06:59 Intake Total 1330 2400 Output Total 3300 1775 Balance -1970 625 Result Diagrams: 05/06/18 04:53 05/03/18 05:13 Phys Exam - Physical Examination afebrile HEENT: PERRLA, moist MMs Neck: no JVD Respiratory: no wheezing, no rhonchi fair air entry bilaterally Cardiovascular: RRR Gastrointestinal: soft, non-tender, no distention, positive bowel sounds Musculoskeletal: no edema Left hemiparesis. Psychiatric: A&O x 3 Deviation from normal: left calf area of petechial rash noted Dx/Plan (1) Acute right MCA stroke Code(s): I63.511 - CEREB INFRC D/T UNSP OCCLS OR STENOS OF RIGHT MID CEREB ART Status: Acute Comment: ? cardioembolization from the heart given history of tachyarrhthmia. (2) Depression Code(s): F32.9 - MAJOR DEPRESSIVE DISORDER, SINGLE EPISODE, UNSPECIFIED Status : Acute Comment: worse with stroke, will increase home Lexapro to 10mg each night. (3) Hypothyroid Code(s): E03.9 - HYPOTHYROIDISM, UNSPECIFIED Status: Acute (4) Left hemiparesis Code(s): G81.94 - HEMIPLEGIA, UNSPECIFIED AFFECTING LEFT NONDOMINANT SIDE Status: Acute (5) Cardiomyopathy Code(s): I42.9 - CARDIOMYOPATHY, UNSPECIFIED Status: Chronic Comment: EF 45- 50%, grade 1/3 diastolic dysfunction (6) Tachycardia Code(s): R00.0 - TACHYCARDIA, UNSPECIFIED Status: Resolved Comment: controlled with low dose Propranolol (7) UTI (urinary tract infection), bacterial Code(s): N39.0 - URINARY TRACT INFECTION, SITE NOT SPECIFIED; A49.9 - BACTERIAL INFECTION, UNSPECIFIED Status: Acute - Plan Start antibiotic for UTI while awaiting cultures. -: consult cardiology for cardiomyopathy and tachyarrhthmia in stroke patient -: continue other treatments. -: PT/OT to continue * .
[2018-05-07 12:47] LABS: #Basophils 0.1 thou/uL (0.0-0.2); #Eosinphils 0.5 thou/uL (0.0-0.7); #Monocytes 0.8 thou/uL (0.11-0.59); #Neutrophils 5.4 thou/uL (1.40-6.50); %Basophils 0.8 % (0.0-1.0); %Eosinophils 5.2 % (0.0-10.0); %Monocytes 8.9 % (0.0-10.0); Hemoglobin 13.5 g/dL (12.0-16.0); Mean Corpuscular HGB CONC 33.9 g/dL (32.0-36.0); Mean Corpuscular Hemoglobin 36.1 pg (27.0-31.0); Mean Platelet Volume 7.5 fL (7.4-10.4); Platelet Count 273 thou/uL (130-400); RBC Distribution Width 15.1 % (11.5-14.5); Red Blood Cell (RBC) Count 3.74 mill/uL (4.20-5.40); White Blood Cell (WBC) Count 8.7 thou/uL (4.8-10.8)
[2018-05-07 13:00] LABS: Anion Gap 11 mmol/L (10-20); BUN (Urea Nitrogen) 10 mg/dL (9.8-20.1); Calc. Creatinine Clearance 116 mL/min (70-130); Calcium 9.4 mg/dL (7.8-10.44); Carbon Dioxide 24 mmol/L (23-31); Chloride 108 mmol/L (98-107); Estimated GFR-MDRD 88; Glucose 85 mg/dL (80-115); Potassium 3.8 mmol/L (3.5-5.1); Sodium 139 mmol/L (136-145)
[2018-05-07] MEDS: Acetaminophen 325 MG TAB PO PRN (14:42)
--- NOTE | 2018-05-07 17:03 | CON ---
DATE OF CONSULTATION: 05/07/2018 REASON FOR CONSULTATION: Mildly reduced LV function. HISTORY OF PRESENT ILLNESS: Ms. Porter is a pleasant 63-year-old white female, who comes to the hospital for stroke like symptoms. She was evaluated in the ER and found to have an acute CVA. Eventually, was taken to the catheterization lab by Dr. Hoyt, where she received thrombectomy from a thrombus in the right middle cerebral artery. Successful procedure, she has done well since she had an episode of tachycardia, that is only sinus tach, nothing that would explain an embolic source. She otherwise denies any chest pain, tightness, pressure, or palpitations. She is doing much better. She had an echocardiogram that showed a reduced EF estimated at 45% to 50%, is mildly reduced and grade 1 diastolic dysfunction. PAST MEDICAL HISTORY: 1. Hypothyroidism. 2. Hypertension. PAST SURGICAL HISTORY: 1. . 2. Ankle surgery. 3. Back surgery. SOCIAL HISTORY: . Smokes half-a-pack a day. No alcohol. FAMILY HISTORY: Mother with CVA. OUTPATIENT MEDICATIONS: 1. Propranolol 80 mg a day. 2. Citalopram 5 mg a day. 3. Levothyroxine 125 mcg a day. ALLERGIES: 1. KEFLEX. 2. CODEINE. 3. IODINE. 4. MEPERIDINE, DEMEROL. 5. SULFA DRUGS. REVIEW OF SYSTEMS: A 12-point review of systems was done and was found to be negative unless stated in the history of present illness. PHYSICAL EXAMINATION: VITAL SIGNS: Temperature 98.3, pulse 77, respiratory rate 18, saturating 97% on room air, and blood pressure 98/55. GENERAL: Awake, alert, oriented x3. No distress. HEENT: Normocephalic, atraumatic. NECK: Supple. LUNGS: Clear. CARDIOVASCULAR: S1 and S2. No S3 or S4. No murmurs. ABDOMEN: Soft. Positive bowel sounds. EXTREMITIES: No edema. SKIN: Warm and dry. LABORATORY DATA: Laboratory work was reviewed. CBC was reviewed. Chemistries and UA were reviewed. She has positive urine studies suggestive of UTI with positive nitrites. Telemetry was reviewed, sinus tachycardia and mostly sinus rhythm. Sinus tach was at a very low 100s rate. Echocardiogram was reviewed, EF at about 45% to 50% with grade 1 diastolic dysfunction. ASSESSMENT: 1. Acute cerebrovascular accident. 2. Status post thrombectomy. 3. Right middle cerebral artery distribution stroke. 4. Mildly reduced LV function at 45% to 50%. PLAN: 1. Currently, no major indication for full anticoagulation. I recommend aspirin. If we were to detect any arrhythmias that would suggest cardioembolic phenomena, she will require full anticoagulation. This would be better started about 2 weeks from this initial episode. 2. We will follow. Job ID: [id number]
[2018-05-07] MEDS: Escitalopram Oxalate 10 mg Tablet PO SCH (20:24)
[2018-05-07] MEDS: Atorvastatin Calcium 40 MG TAB PO SCH (20:24)
[2018-05-08] MEDS: Levothyroxine Sodium 125 MCG TAB PO SCH (05:58)
[2018-05-08] MEDS: Docusate 100 MG CAP PO SCH ×2 (08:40→21:01)
[2018-05-08] MEDS: Enoxaparin Sodium 30 MG/0.3 ML SYRINGE SC SCH (08:41)
[2018-05-08] MEDS: Aspirin 325 mg Enteric Coated Tablet PO SCH (08:41)
[2018-05-08] MEDS: Propranolol 10 MG TAB PO SCH (08:41)
[2018-05-08] MEDS: Famotidine 20 MG TAB PO SCH ×2 (08:41→20:59)
[2018-05-08] MEDS: Acetaminophen 325 MG TAB PO PRN (13:10)
--- NOTE | 2018-05-08 14:58 | PDOC.PN ---
- Subjective Encounter Start Date: 05/08/18 Encounter Start Time: 14:57 Subjective: no new problem. -: Left hemiparesis persist. -: Reported having left calf pain about 1 week ago. - Objective Vital Signs & Weight: Vital Signs (12 hours) Temp Pulse Resp BP BP BP Pulse Ox 05/08/18 12:00 97.6 F 94 20 106/80 100 05/08/18 11:34 131/59 L 123/70 05/08/18 07:57 98.1 F 78 20 115/71 96 Weight Weight 187 lb Most Recent Monitor Data Heart Rate from ECG 65 NIBP 120/67 NIBP BP-Mean 84 Respiration from ECG 17 SpO2 99 I&O: 05/07/18 05/08/18 05/09/18 06:59 06:59 06:59 Intake Total 2400 1220 600 Output Total 1775 750 Balance 625 470 600 Result Diagrams: 05/07/18 12:38 05/07/18 12:38 Phys Exam - Physical Examination Constitutional: NAD HEENT: PERRLA Neck: supple Respiratory: no wheezing, no rhonchi, clear to auscultation bilateral Cardiovascular: RRR Gastrointestinal: soft, non-tender, no distention, positive bowel sounds Musculoskeletal: no edema power 0/5 left limbs and 5/5 right limbs Psychiatric: A&O x 3 Dx/Plan (1) Acute right MCA stroke Code(s): I63.511 - CEREB INFRC D/T UNSP OCCLS OR STENOS OF RIGHT MID CEREB ART Status: Acute Comment: s/p Manual thrombectomy. ? cardioembolization from the heart given history of tachyarrhthmia. (2) Depression Code(s): F32.9 - MAJOR DEPRESSIVE DISORDER, SINGLE EPISODE, UNSPECIFIED Status : Acute Comment: worse with stroke, will increase home Lexapro to 10mg each night. (3) Hypothyroid Code(s): E03.9 - HYPOTHYROIDISM, UNSPECIFIED Status: Acute (4) Left hemiparesis Code(s): G81.94 - HEMIPLEGIA, UNSPECIFIED AFFECTING LEFT NONDOMINANT SIDE Status: Acute (5) Cardiomyopathy Code(s): I42.9 - CARDIOMYOPATHY, UNSPECIFIED Status: Chronic Comment: EF 45- 50%, grade 1/3 diastolic dysfunction (6) Tachycardia Code(s): R00.0 - TACHYCARDIA, UNSPECIFIED Status: Resolved Comment: controlled with low dose Propranolol (7) UTI (urinary tract infection), bacterial Code(s): N39.0 - URINARY TRACT INFECTION, SITE NOT SPECIFIED; A49.9 - BACTERIAL INFECTION, UNSPECIFIED Status: Acute Comment: Culture grew klebsiella - Plan Continue current treatments. -: R/o DVT with doppler of lower extremities -: Awaiting placment. -: Continue PT/OT * .
[2018-05-08] MEDS: traMADol HCl 50 MG TAB PO PRN ×2 (16:44→21:00)
--- NOTE | 2018-05-08 17:06 | ULT ---
BILATERAL LOWER EXTREMITY VENOUS DUPLEX EXAM: Technique: Deep veins of both lower extremities were evaluated with color doppler, spectral analysis and compression. Indications: Lower extremity pain and edema. FINDINGS: Deep veins of both lower extremities show normal blood flow and compression. No evidence of DVT. IMPRESSION: No evidence of lower extremity DVT. POS: VANDA
--- NOTE | 2018-05-08 17:59 | PDOC.CTH ---
Cardiology Progress Note - Subjective No new issues. Doing rehab. - Objective Vital Signs Temp Pulse Resp BP BP BP Pulse Ox 05/08/18 15:35 97.7 F 82 20 110/65 96 05/08/18 12:00 97.6 F 94 20 106/80 100 05/08/18 11:34 131/59 L 123/70 05/08/18 07:57 98.1 F 78 20 115/71 96 Weight 187 lb 05/07/18 05/08/18 05/09/18 06:59 06:59 06:59 Intake Total 2400 1220 600 Output Total 1775 750 Balance 625 470 600 - Physical Examination General/Neuro: alert & oriented x3, NAD Neck: no JVD present Lungs: unlabored respirations Heart: RRR Abdomen: NT/ND Extremities: other: (no edema) - Telemetry Telemetry Rhythm: NSR - Labs Result Diagrams: 05/07/18 12:38 05/07/18 12:38 - Assessment/Plan 1. Acute CVA 2. S/P Thrombectomy 3. Mild LV dysfunction. PLAN - Will stop propranolol and hiren start Coreg for LV dysfunction. - Risk stratification as an outpatient. - Will sign off. Please call with any questions. - Follow up in the office in 2 months.
[2018-05-08] MEDS: Atorvastatin Calcium 40 MG TAB PO SCH (20:58)
[2018-05-08] MEDS: Escitalopram Oxalate 10 mg Tablet PO SCH (21:00)
[2018-05-09] MEDS: Levothyroxine Sodium 125 MCG TAB PO SCH (05:59)
[2018-05-09] MEDS: Enoxaparin Sodium 30 MG/0.3 ML SYRINGE SC SCH (08:43)
[2018-05-09] MEDS: Carvedilol 3.125 MG TAB PO SCH ×3 (08:44→16:55)
[2018-05-09] MEDS: Aspirin 325 mg Enteric Coated Tablet PO SCH (08:44)
[2018-05-09] MEDS: Docusate 100 MG CAP PO SCH ×2 (08:44→20:29)
[2018-05-09] MEDS: Famotidine 20 MG TAB PO SCH ×2 (08:45→20:29)
--- NOTE | 2018-05-09 14:24 | PDOC.PN ---
- Subjective Encounter Start Date: 05/09/18 Encounter Start Time: 09:30 Subjective: awake, trying to eat ice cream -: family at bedside -: moves right extremities well - Objective Resuscitation Status - Order Detail: 05/09/18 12:02 Resuscitation Status Routine Resuscitation Status: FULL: Full Resuscitation Additional comments: per Dr. Fuentes's event note MAR Reviewed: Yes Vital Signs & Weight: Vital Signs (12 hours) Temp Pulse Pulse Pulse Resp BP BP 05/09/18 12:26 80 86 110/72 107/61 05/09/18 11:46 98.6 F 83 17 05/09/18 08:00 05/09/18 07:40 97.4 F L 82 16 05/09/18 03:50 97.5 F L 73 16 BP Pulse Ox 05/09/18 12:26 05/09/18 11:46 108/63 96 05/09/18 08:00 95 05/09/18 07:40 111/78 95 05/09/18 03:50 112/55 L 95 Weight Weight 184 lb 3 oz Most Recent Monitor Data Heart Rate from ECG 65 NIBP 120/67 NIBP BP-Mean 84 Respiration from ECG 17 SpO2 99 I&O: 05/08/18 05/09/18 05/10/18 06:59 06:59 06:59 Intake Total 1220 900 Output Total 750 1750 Balance 470 -850 Result Diagrams: 05/07/18 12:38 05/07/18 12:38 Phys Exam - Physical Examination HEENT: PERRLA, moist MMs Neck: no JVD, supple Respiratory: no wheezing, no rales Cardiovascular: RRR, no significant murmur Gastrointestinal: soft, non-tender, positive bowel sounds Musculoskeletal: no edema, pulses present left hemiplegia Psychiatric: normal affect, A&O x 3 Dx/Plan (1) Acute right MCA stroke Code(s): I63.511 - CEREB INFRC D/T UNSP OCCLS OR STENOS OF RIGHT MID CEREB ART Status: Acute Comment: s/p Manual thrombectomy. (2) HTN (hypertension) Code(s): I10 - ESSENTIAL (PRIMARY) HYPERTENSION Status: Chronic Qualifiers: Hypertension type: essential hypertension Qualified Code(s): I10 - Essential (primary) hypertension (3) COPD (chronic obstructive pulmonary disease) Status: Chronic Qualifiers: COPD type: chronic bronchitis Comment: nebs prn (4) Depression Code(s): F32.9 - MAJOR DEPRESSIVE DISORDER, SINGLE EPISODE, UNSPECIFIED Status : Chronic Qualifiers: Depression Type: major depressive disorder Comment: worse with stroke, will increase home Lexapro to 10mg each night. (5) UTI (urinary tract infection), bacterial Code(s): N39.0 - URINARY TRACT INFECTION, SITE NOT SPECIFIED; A49.9 - BACTERIAL INFECTION, UNSPECIFIED Status: Acute Comment: Culture grew klebsiella (6) Cardiomyopathy Code(s): I42.9 - CARDIOMYOPATHY, UNSPECIFIED Status: Chronic Comment: EF 45- 50%, grade 1/3 diastolic dysfunction - Plan is on aspirin, lipitor, coreg, synthroid, lexapro, seroquel -: on levaquin for uti -: awaiting rehab -: d/w patient and family at bedside * . Review of Systems - Medications/Allergies Allergies/Adverse Reactions: Allergies Allergy/AdvReac Type Severity Reaction Status Date / Time cephalexin [From Keflex] Allergy Verified 04/30/18 08:17 codeine Allergy Verified 04/30/18 08:17 iodine Allergy Verified 04/30/18 07:17 meperidine [From Demerol] Allergy Verified 04/30/18 08:17 Sulfa (Sulfonamide Allergy Verified 04/30/18 08:17 Antibiotics) Medications: Current Medications Acetaminophen (Tylenol) 650 mg PO Q6H PRN PRN Reason: Headache/Fever/Mild Pain (1-3) Last Admin: 05/08/18 13:10 Dose: 650 mg Albuterol/Ipratropium (Duoneb) 3 ml NEB [id number] PRN PRN Reason: SOB &/or Wheezing Last Admin: 05/06/18 18:27 Dose: 3 ml Aspirin (Ecotrin) 325 mg PO DAILY [facility] Last Admin: 05/09/18 08:44 Dose: 325 mg Atorvastatin Calcium (Lipitor) 40 mg PO HS [facility] Last Admin: 05/08/18 20:58 Dose: 40 mg Bisacodyl (Dulcolax) 10 mg PO DAILYPRN PRN PRN Reason: Constipation Carvedilol (Coreg) 3.125 mg PO BID-[facility] Last Admin: 05/09/18 08:44 Dose: 3.125 mg Docusate Sodium (Colace) 100 mg PO BID [facility] Last Admin: 05/09/18 08:44 Dose: Not Given Enoxaparin Sodium (Lovenox) 30 mg SC 0900 [facility] Last Admin: 05/09/18 08:43 Dose: 30 mg Escitalopram Oxalate (Lexapro) 10 mg PO HS [facility] Last Admin: 05/08/18 21:00 Dose: 10 mg Famotidine (Pepcid) 20 mg PO BID [facility] Last Admin: 05/09/18 08:45 Dose: 20 mg Labetalol HCl (Normodyne) 10 mg SLOW IVP Q2H PRN PRN Reason: SBP > 180 or DBP > 105 Levofloxacin (Levaquin) 500 mg PO 0600 [facility] Last Admin: 05/09/18 05:59 Dose: 500 mg Levothyroxine Sodium (Synthroid) 125 mcg PO 0600 [facility] Last Admin: 05/09/18 05:59 Dose: 125 mcg Melatonin (Melatonin) 3 mg PO HS PRN PRN Reason: Insomnia Ondansetron HCl (Zofran) 4 mg IVP Q6H PRN PRN Reason: Nausea/Vomiting Last Admin: 05/02/18 04:27 Dose: 4 mg Ondansetron HCl (Zofran Odt) 4 mg PO Q6H PRN PRN Reason: Nausea/Vomiting Last Admin: 05/07/18 20:28 Dose: 4 mg Phenylephrine HCl (Santosh-Synephrine 0.5% Nasal [place]) 0 ml EA NARE BID PRN PRN Reason: Congestion Quetiapine Fumarate (Seroquel) 25 mg PO HS [facility] Last Admin: 05/08/18 20:59 Dose: 25 mg Sodium Chloride (Flush - Normal Saline) 10 ml IVF Q12HR [facility] Last Admin: 05/09/18 08:45 Dose: 10 ml Sodium Chloride (Flush - Normal Saline) 10 ml IVF PRN PRN PRN Reason: Saline Flush Tramadol HCl (Ultram) 50 mg PO Q4H PRN PRN Reason: Headache Last Admin: 05/08/18 21:00 Dose: 50 mg
[2018-05-09] MEDS: Escitalopram Oxalate 10 mg Tablet PO SCH (20:29)
[2018-05-09] MEDS: Atorvastatin Calcium 40 MG TAB PO SCH (20:29)
[2018-05-10] MEDS: Levothyroxine Sodium 125 MCG TAB PO SCH (05:39)
[2018-05-10] MEDS: Acetaminophen 325 MG TAB PO PRN (06:12)
[2018-05-10] MEDS: Aspirin 325 mg Enteric Coated Tablet PO SCH (08:14)
[2018-05-10] MEDS: Carvedilol 3.125 MG TAB PO SCH (08:15)
[2018-05-10] MEDS: Enoxaparin Sodium 30 MG/0.3 ML SYRINGE SC SCH (08:15)
[2018-05-10] MEDS: Famotidine 20 MG TAB PO SCH (08:15)
[2018-05-10] MEDS: Docusate 100 MG CAP PO SCH (08:16)
[2018-05-10 11:27] VITALS: BP 110/67; TEMP 97.6
--- NOTE | 2018-05-10 13:21 | PDOC.PN ---
- Subjective Encounter Start Date: 05/10/18 Encounter Start Time: 09:20 Subjective: awake, no sob or chest pain - Objective Resuscitation Status - Order Detail: 05/09/18 12:02 Resuscitation Status Routine Resuscitation Status: FULL: Full Resuscitation Additional comments: per Dr. Fuentes's event note MAR Reviewed: Yes Vital Signs & Weight: Vital Signs (12 hours) Temp Pulse Pulse Pulse Resp BP BP 05/10/18 11:26 97.6 F 81 16 05/10/18 09:45 84 79 100/62 111/66 05/10/18 08:00 05/10/18 07:57 98.1 F 84 16 05/10/18 04:11 97.8 F 94 16 BP Pulse Ox 05/10/18 11:26 110/67 95 05/10/18 09:45 05/10/18 08:00 96 05/10/18 07:57 114/69 96 05/10/18 04:11 119/73 93 L Weight Weight 184 lb 3 oz Most Recent Monitor Data Heart Rate from ECG 65 NIBP 120/67 NIBP BP-Mean 84 Respiration from ECG 17 SpO2 99 I&O: 05/09/18 05/10/18 05/11/18 06:59 06:59 06:59 Intake Total 900 866 Output Total 1750 850 800 Balance -850 16 -800 Result Diagrams: 05/07/18 12:38 05/07/18 12:38 Phys Exam - Physical Examination HEENT: PERRLA, moist MMs Neck: no JVD, supple Respiratory: no wheezing, no rales Cardiovascular: RRR, no significant murmur Gastrointestinal: soft, non-tender, positive bowel sounds Musculoskeletal: no edema, pulses present left hemiplegia Psychiatric: normal affect, A&O x 3 Dx/Plan (1) Acute right MCA stroke Code(s): I63.511 - CEREB INFRC D/T UNSP OCCLS OR STENOS OF RIGHT MID CEREB ART Status: Acute Comment: s/p Manual thrombectomy. (2) HTN (hypertension) Code(s): I10 - ESSENTIAL (PRIMARY) HYPERTENSION Status: Chronic Qualifiers: Hypertension type: essential hypertension Qualified Code(s): I10 - Essential (primary) hypertension (3) COPD (chronic obstructive pulmonary disease) Status: Chronic Qualifiers: COPD type: chronic bronchitis Comment: nebs prn (4) Depression Code(s): F32.9 - MAJOR DEPRESSIVE DISORDER, SINGLE EPISODE, UNSPECIFIED Status : Chronic Qualifiers: Depression Type: major depressive disorder Comment: worse with stroke, will increase home Lexapro to 10mg each night. (5) UTI (urinary tract infection), bacterial Code(s): N39.0 - URINARY TRACT INFECTION, SITE NOT SPECIFIED; A49.9 - BACTERIAL INFECTION, UNSPECIFIED Status: Acute Comment: Culture grew klebsiella (6) Cardiomyopathy Code(s): I42.9 - CARDIOMYOPATHY, UNSPECIFIED Status: Chronic Comment: EF 45- 50%, grade 1/3 diastolic dysfunction - Plan hemo/neurostable -: has been accepted to inpt rehab, may dc anytime -: d/w family at bedtime * .
--- NOTE | 2018-05-11 13:08 | DIS ---
DATE OF ADMISSION: 04/30/2018 DATE OF DISCHARGE: 05/10/2018 DISCHARGE DISPOSITION: Inpatient rehab. PRIMARY DISCHARGE DIAGNOSES: Acute right MCA infarct status post manual thrombectomy, hypertension, chronic obstructive pulmonary disease, depression, urinary tract infection, cardiomyopathy with ejection fraction of 45%, and diastolic dysfunction. PROCEDURES DONE DURING HOSPITALIZATION: CT angio brain showed occlusive clot in distal M1 segment of the right MCA territory. There was reconstitution of M2 branches, associated early cytotoxic edema was seen in the distribution of right MCA. The patient had mechanical thrombectomy done of right MCA territory by Dr. Lai Jackson on 04/30/2018. MRI brain done on 05/02/2018 showed extensive acute/subacute infarct involving right cerebral hemisphere. This primarily involves right frontal lobe, right perisylvian cortex and distribution includes right anterior cerebral and right middle cerebral arteries. Echo with 2D Doppler showed EF of 45% to 50%. There was grade 1/3 diastolic dysfunction. Ultrasound venous Doppler of bilateral lower extremity done on 05/08/2018 showed no evidence of DVT. Urine culture grew Klebsiella sensitive to all antibiotics except Macrobid. H and H are 13 and 39, platelet count 273, MCV is 107, BUN 10, creatinine 0.6, total cholesterol 220, triglycerides 182, LDL 146, HDL 38. DISCHARGE MEDICATIONS: 1. Levothyroxine 125 mcg p.o. daily. 2. Aspirin 325 mg p.o. daily. 3. Lipitor 40 mg p.o. at bedtime. 4. Coreg 3.125 mg p.o. twice daily. 5. Colace 100 mg p.o. twice daily. 6. Lexapro 10 mg p.o. at bedtime. 7. DuoNeb q.4 hourly p.r.n. 8. Melatonin 3 mg p.o. at bedtime p.r.n. 9. Seroquel 25 mg p.o. at bedtime. ALLERGIES: TO KEFLEX, CODEINE, IODINE, MEPERIDINE, AND SULFA. INPATIENT CONSULT: 1. Eliot Hoyt MD for Interventional Neurosurgery. 2. Candelario Berry MD, for Pulmonology. 3. Jose Salazar MD, for Neurology. DISCHARGE PLAN: The patient to follow up with Dr. Salazar in 4 weeks. She also needs to follow up with primary care physician in 1 week. BRIEF COURSE DURING HOSPITALIZATION: The patient initially went to [facility] after she woke up with left-sided weakness. A CT angio of brain done showed large vessel occlusion initially and was transferred here. Dr. Eliot Hoyt, neurosurgeon, initially evaluated the patient and took the patient for mechanical thrombectomy of right MCA territory. The patient was admitted to ICU and later downgraded to medical floor. The patient has dense left hemiplegia and dysphagia. She is stabilized neurologically. Echo done showed EF of 45%. Her medications were optimized for the same. The patient is being accepted to inpatient rehab for further recuperation prior to going home. She is tolerating oral diet at the time of discharge. A total of 35 minutes was spent on discharge plan. Please see a [id number] documentation for the day of discharge on [employer]. Job ID: [id number]
== END 2018-05-10 12:33 | DRG 24 ==
LOC: ERS 03:34 → CCL 05:49 → CCU 07:03 → 2SE 05-01 10:54
PROVIDERS: ADMIT Neurological Surgery; ATTEND Neurological Surgery
PROC: 03CK3ZZ Extirpation of Matter from Right Internal Carotid Artery, Percutaneous Approach (ICD-10-PCS; principal; 2018-04-30)
PROC: B50DYZZ Plain Radiography of Bilateral Lower Extremity Veins using Other Contrast (ICD-10-PCS; 2018-04-30)
DX: I63.311 Cerebral infarction due to thrombosis of right middle cerebral artery (principal); G81.94 Hemiplegia, unspecified affecting left nondominant side; I42.9 Cardiomyopathy, unspecified; N39.0 Urinary tract infection, site not specified; E03.9 Hypothyroidism, unspecified; I10 Essential (primary) hypertension; F39 Unspecified mood [affective] disorder; R00.0 Tachycardia, unspecified; J44.9 Chronic obstructive pulmonary disease, unspecified; F32.9 Major depressive disorder, single episode, unspecified; B96.1 Klebsiella pneumoniae [K. pneumoniae] as the cause of diseases classified elsewhere
CPT/HCPCS: 0042T; 36217; 36223; 36415; 36416; 37184; 70450; 70496; 70498; 70551; 80048; 80061; 81001; 85025; 87077; 87086; 87186; 90471; 90732; 93306; 93970; 94640; 96374; C1757; C1887; G0009; J1200; J1644; J1650; J1885; J1956; J2001; J2370; J2405; J2704; J2765; J3010; J3490; J7620; J8597; Q0162; Q0163; Q9966; Q9967; S0028

== ENCOUNTER 2018-06-14 19:58 | Emergency (ER) | payer SELFPAY ==
[~2018-06-14 19:58] MED LIST: ISOVUE-370 76%-LOCM 1 ML ONE
[2018-06-14 21:02] LABS: #Basophils 0.1 thou/uL (0.0-0.2); #Eosinphils 0.6 thou/uL (0.0-0.7); #Lymphocytes 2.5 thou/uL (1.20-3.40); #Monocytes 0.5 thou/uL (0.11-0.59); #Neutrophils 4.9 thou/uL (1.40-6.50); %Eosinophils 6.5 % (0.0-10.0); %Monocytes 6.3 % (0.0-10.0); %Neutrophils 57.2 % (42.0-75.0); Mean Corpuscular HGB CONC 33.1 g/dL (32.0-36.0); Mean Corpuscular Hemoglobin 35.9 pg (27.0-31.0); Mean Platelet Volume 6.7 fL (7.4-10.4); Platelet Count 267 thou/uL (130-400); Red Blood Cell (RBC) Count 3.34 mill/uL (4.20-5.40); White Blood Cell (WBC) Count 8.6 thou/uL (4.8-10.8)
--- NOTE | 2018-06-14 21:12 | CT ---
CT Abdomen Pelvis WO Con History: [Swelling and pain] Comparison: CT abdomen and pelvis 2009 Findings: Lung bases are clear. No pericardial effusion. 2 mm calculus interpolar right renal collect ing system. No hydroureteronephrosis. No perinephric stranding. Noncontrast evaluation of the liver, spleen, pancreas are unremarkable. Mild plaque of the aorta. Mod erate diverticular disease sigmoid colon without active current inflammation. There is atrophy of both tensor fascial arcelia muscles. Low-grade fluid superficial to the oblique musc ulature on the left. Midline sagittal heart is scar adjacent to the left rectus abdominis muscle extending from the skin surface. No acute osseous abnormality. No subcutaneous fluid collections appreciated. The left common femoral vein and femoral vein have noelle ma surrounding it. Also mild asymmetric edema of the left quadriceps musculature. Impression: 1. Asymmetric edema surrounding the left femoral vein may reflect deep venous thrombosis. Ultrasound recommended. 2. Fluid superficial to the oblique musculature on the left is similar to 2009. No drainable fluid co llection is appreciated. 3. Mild edema within the left thigh musculature. If ultrasound is negative for thrombosis, and there is an elevated white count, fasciitis would be of concern. 4. Nonobstructive 2 mm calculus interpolar right kidney.
[2018-06-14 21:22] LABS: Bilirubin Negative (Negative); Blood, Urine Negative (Negative); Clarity CLEAR (Clear); Glucose, Urine (Dipstick) Negative (Negative); Leukocyte Negative (Negative); Nitrite Negative (Negative); Protein, Urine (Dipstick) Negative (Neg-Trace); Specific Gravity, Urine 1.006 (1.002-1.036); Urobilinogen 0.2 mg/dL (0.2-1.0); pH, Urine 7.5 (5.0-9.0)
[2018-06-14 21:25] LABS: ALT (SGPT) 16 U/L (8-55); AST (SGOT) 19 U/L (5-34); Albumin 3.5 g/dL (3.4-4.8); Alkaline Phosphatase 91 U/L (40-150); Anion Gap 10 mmol/L (10-20); BUN (Urea Nitrogen) 9 mg/dL (9.8-20.1); Bilirubin, Total 0.3 mg/dL (0.2-1.2); Calc. Creatinine Clearance 0 mL/min (70-130); Carbon Dioxide 25 mmol/L (23-31); Chloride 114 mmol/L (98-107); Estimated GFR-MDRD 86; Globulin 2.4 g/dL (2.4-3.5); Glucose 96 mg/dL (80-115); Potassium 3.5 mmol/L (3.5-5.1); Protein, Total 5.9 g/dL (6.0-8.3); Sodium 145 mmol/L (136-145)
--- NOTE | 2018-06-14 21:37 | RAD ---
XR Hip Lt 2-3 View History: [Pain. Swelling.] Comparison: CT same day Findings: No acute fracture or malalignment. Impression: No acute fracture or malalignment.
--- NOTE | 2018-06-14 21:38 | ULT ---
US Venous Doppler Lt Unilat History: [Lower extremity edema and swelling] Comparison: CT same day Findings: Real-time grayscale, color, and spectral analysis of the left lower extremity venous system was performed. The common femoral, femoral, proximal portions greater saphenous and deep femoral veins as well as the popliteal posterior tibial veins were interrogated. Partially occlusive thrombus throughout the left lower extremity from the common femoral vein through the femoral vein and popliteal posterior tibial veins. There is a portion of the femoral vein which does not have significant clot within it. Impression: Partially occlusive thrombus left lower extremity. Code: CR
[2018-06-14] MEDS ORDERED: Ondansetron PF 4 MG/2 ML Vial ONE (21:57)
[2018-06-14] MEDS ORDERED: Famotidine/PF 20 mg/2ml Vial ONE (21:57)
[2018-06-14] MEDS ORDERED: diphenhydrAMINE 50 MG/ML VIAL ONE (21:57)
[2018-06-14] MEDS ORDERED: methylPREDNISolone Sod Succ/PF 125 MG/2 ML VIAL ONE (21:57)
--- NOTE | 2018-06-14 23:12 | CT ---
CTA Angio Chest W WO Con History: [Chest pain. Swelling.] Comparison: None Findings: CT angiogram of the chest was performed after the intravenous administration of contrast. 3 -D rendering was provided. No proximal segmental pulmonary arterial filling defect. No pericardial effusion Aortic contour is normal. Celiac trunk and superior mesenteric arteries are patent. Lungs are clear. No pneumothorax or effusion. No thoracic spine compression deformity. No displaced r ib fracture. Impression: No proximal segmental pulmonary arterial filling defect. No acute intrathoracic abnormali ty.
[2018-06-15] MEDS ORDERED: Apixaban 5 MG TAB PO SCH (00:30)
== END 2018-06-15 00:50 | disposition home or self-care (01) ==
LOC: ERS 19:58
DX: I82.412 Acute embolism and thrombosis of left femoral vein (principal); E03.9 Hypothyroidism, unspecified; F32.9 Major depressive disorder, single episode, unspecified; J44.9 Chronic obstructive pulmonary disease, unspecified; I50.9 Heart failure, unspecified; M19.90 Unspecified osteoarthritis, unspecified site; Z87.891 Personal history of nicotine dependence; Z79.82 Long term (current) use of aspirin; Z79.899 Other long term (current) drug therapy
CPT/HCPCS: 36415; 71275; 74176; 80053; 81003; 85025; 96374; 96375; J1200; J2405; J2930; Q9966; S0028

== ENCOUNTER 2018-10-05 12:17 | Outpatient (CLI) | payer OTHER ==
--- NOTE | 2018-10-05 14:13 | ULT ---
VENOUS DUPLEX SONOGRAM LEFT LOWER EXTREMITY: 10/05/18 HISTORY: Previous DVT. Re-evaluation. COMPARISON: 06/14/18. FINDINGS: The left common femoral vein and greater saphenous junction were evaluated along with the femoral, de ep femoral, popliteal, and posterior tibial veins. There is good color and spectral Doppler flow, com pression, and augmentation. IMPRESSION: Interval resolution of clot. No sonographic evidence of DVT within the left lower extremity. POS: [facility]
== END 2018-10-05 12:18 | disposition home or self-care (01) ==
LOC: BICULT 12:17
PROVIDERS: ATTEND Psychiatry & Neurology Neurology
DX: I82.402 Acute embolism and thrombosis of unspecified deep veins of left lower extremity (principal); I66.01 Occlusion and stenosis of right middle cerebral artery